=== PATIENT | male | born 1960 | race Two or more races ===

== ENCOUNTER 2024-07-07 14:14 | Emergency (ER) | payer OTHER ==
[~2024-07-07] VITALS: Ht 185.4 cm; Wt 99.8 kg
[2024-07-07] MEDS ORDERED: SWABABLE VALVE TRANSFER SET EA MC ONE (15:01)
[2024-07-07] MEDS ORDERED: IOHEXOL 350 100 ML INFUS..BTL ONE (15:01)
[2024-07-07] MEDS ORDERED: IV NORMAL SALINE 250 ML IV ONE (15:01)
[2024-07-07 15:05] LABS: BASOPHILS # (AUTO) 0.1 K/UL (0.0-0.2); BASOPHILS % (AUTO) 0.7 % (0.0-2.0); EOSINOPHILS % (AUTO) 0.6 % (0.0-7.0); HEMATOCRIT 43.5 % (36.7-47.1); HEMOGLOBIN 15.4 g/dL (12.5-16.3); LYMPHOCYTES # (AUTO) 2.4 K/uL (0.8-4.8); LYMPHOCYTES % (AUTO) 29.6 % (20.5-51.5); MEAN CORPUSCULAR HEMOGLOBIN 31.8 uug (23.8-33.4); MEAN CORPUSCULAR HGB CONC 36 g/dL (32.5-36.3); MEAN CORPUSCULAR VOLUME 89.7 fL (73.0-96.2); MONOCYTES # (AUTO) 0.5 K/uL (0.1-1.30); MONOCYTES % (AUTO) 5.9 % (0.0-11.0); NEUTROPHILS # (AUTO) 5.1 K/uL (1.8-8.9); NEUTROPHILS % (AUTO) 63.2 % (38.5-71.5); PLATELET COUNT (AUTO) 177 K/uL (152-348); RED BLOOD CELL COUNT(AUTO) 4.85 MIL/uL (4.06-5.63); RED CELL DISTRIBUTION WIDTH 12.6 % (12.1-16.2)
[2024-07-07 15:08] LABS: DIFFERENTIAL COMMENT 1
[2024-07-07 15:24] LABS: ALANINE AMINOTRANSFERASE 40 U/L (16-63); ALBUMIN 4.3 g/dL (3.4-5.0); ALKALINE PHOSPHATASE 83 U/L (50-136); ASPARTATE AMINOTRANSFERASE 18 U/L (15-37); BILIRUBIN,DIRECT 0.1 mg/dL (0.0-0.2); BILIRUBIN,TOTAL 0.7 mg/dL (0.2-1.0); CALCIUM 8.8 mg/dL (8.5-10.1); CARBON DIOXIDE 29 mmol/L (21-32); CHLORIDE 107 mmol/L (98-107); CREATININE 1.1 mg/dL (0.6-1.3); GLUCOSE 206 mg/dL (74-106); POTASSIUM 4.6 mmol/L (3.5-5.1); SODIUM SERUM 145 mmol/L (136-145); TOTAL PROTEIN, SERUM 7.1 g/dL (6.4-8.2); UREA NITROGEN, BLOOD 18 mg/dL (7-18)
[2024-07-07] MEDS ORDERED: CLOPIDOGREL 75 MG TABLET ONE (16:25)
[2024-07-07] MEDS ORDERED: ASPIRIN 81 MG TAB.CHEW ONE (16:25)
[2024-07-07] MEDS ORDERED: CLOP75TA15 PO (16:26)
[2024-07-07] MEDS ORDERED: ASPI81TA31 PO (16:26)
[2024-07-07] MEDS: ASPIRIN 81 MG TAB.CHEW PO ONE (16:39)
[2024-07-07] MEDS: CLOPIDOGREL 75 MG TABLET PO ONE (16:39)
[2024-07-07 16:51] VITALS: BP 154/88; O2SAT 97
[2024-07-07 17:06] LABS: *BILIRUBIN,URIN NEGATIVE (NEGATIVE); *CLARITY,URINE CLEAR (CLEAR); *COLOR,URINE YELLOW (YELLOW); *KETONES,URINE NEGATIVE (NEGATIVE); *PROTEIN,URINE NEGATIVE (NEGATIVE); *UROBILINOGEN,URINE 0.2 E.U./dl (NORMAL); LEUKOCYTE ESTERASE ,URINE NEGATIVE (NEGATIVE); NITRITE, URINE NEGATIVE (NEGATIVE); UGLUCOSE TRACE (NEGATIVE)
[2024-07-07 17:07] LABS: *BLOOD, URINE NEGATIVE (NEGATIVE)
[2024-07-07 17:08] LABS: RBC,URINE 0-3 /HPF (0-3); WBC,URINE 0-3 /HPF (0-3)
== END 2024-07-07 16:51 | disposition home or self-care (01) ==
LOC: ER 14:14
DX: G45.9 Transient cerebral ischemic attack, unspecified (principal); R73.9 Hyperglycemia, unspecified; R03.0 Elevated blood-pressure reading, without diagnosis of hypertension; R06.00 Dyspnea, unspecified; R07.9 Chest pain, unspecified; Z79.02 Long term (current) use of antithrombotics/antiplatelets; Z79.82 Long term (current) use of aspirin; Z88.5 Allergy status to narcotic agent
CPT/HCPCS: 99291; 70496; 71045; 80076; 80048; 81001; 82962; 85025; 85730; 84484; 36415; 70498; 93005; 70450; Q9967; A4606; A4663